=== PATIENT | male | born 1985 | race Hispanic/Latino ===

== ENCOUNTER 2023-03-23 12:32 | Emergency (ER) | payer OTHER ==
[~2023-03-23] VITALS: Ht 170.2 cm; Wt 77.1 kg
[2023-03-23] MEDS ORDERED: IBUP-2070 PO (14:35)
[2023-03-23] MEDS ORDERED: PENI500T2 PO (14:35)
[2023-03-23 14:46] VITALS: BP 139/71
== END 2023-03-23 14:51 | disposition home or self-care (01) ==
LOC: EDH 12:32
DX: K04.7 Periapical abscess without sinus (principal); Z79.899 Other long term (current) drug therapy